=== PATIENT | female | born 1930 ===

== ENCOUNTER 2017-03-05 11:15 | Emergency (ER) | payer MEDICARE, OTHER ==
[2017-03-05 11:30] VITALS: RESP 20
[2017-03-05] MEDS ORDERED: Oxycodone/Acetaminophen 5/325 mg Tab PO STA (12:01)
--- NOTE | 2017-03-05 12:02 | C.PDOC ---
History Of Present Illness 86 y/o female, with past medical history that includes Parkinson's, brought to ED s/p fall last night. Patient and caregiver reports hitting the left side of her head, chest, and hip and c/o pain in those areas. Denies LOC, nausea, vomiting, new weakness or numbness, SOB, or other associated symptoms. - HPI Time Seen by Provider: 03/05/17 11:48 Chief Complaint (Nursing): Rib Injury History Per: Patient History/Exam Limitations: no limitations Onset/Duration Of Symptoms: Days Location Of Injury: Left: Chest, Head, Hip Recent travel outside of the [place]: No - Fall Fall:Prior To Injury: Tripped Past Medical History Reviewed: Historical Data, Nursing Documentation, Vital Signs Vital Signs: Last Vital Signs Temp 98.9 F 03/05/17 13:30 Pulse 72 03/05/17 13:30 Resp 20 03/05/17 13:30 BP 107/65 03/05/17 13:30 Pulse Ox 96 03/05/17 13:30 - Medical History PMH: Parkinson's Disease Family History: States: Unknown Family Hx - Social History Hx Alcohol Use: No Hx Substance Use: No - Immunization History Hx Tetanus Toxoid Vaccination: No Hx Influenza Vaccination: No Hx Pneumococcal Vaccination: No Review Of Systems Except As Marked, All Systems Reviewed And Found Negative. Constitutional: Negative for: Fever, Chills Cardiovascular: Negative for: Chest Pain, Palpitations Respiratory: Negative for: Cough, Shortness of Breath, Wheezing Gastrointestinal: Negative for: Vomiting Musculoskeletal: Positive for: Other (Left rib pain, left hip pain) Skin: Negative for: Rash Neurological: Positive for: Headache (left sided). Negative for: Weakness, Numbness, Dizziness Physical Exam - Physical Exam Appears: Non-toxic, No Acute Distress Skin: Normal Color, Warm, Dry Head: Normacephalic, Tenderness (left sided) Eye(s): bilateral: Normal Inspection, PERRL, EOMI Ear(s): Bilateral: Normal Nose: Normal Oral Mucosa: Moist Neck: Normal ROM, No Midline Cervical Tenderness, No Paracervical Tenderness, Supple Chest: Symmetrical, Tenderness (left sided ribs) Cardiovascular: Rhythm Regular, No Murmur Respiratory: Normal Breath Sounds, No Rales, No Rhonchi, No Wheezing Gastrointestinal/Abdominal: Soft, No Tenderness, No Guarding, No Rebound Back: Normal Inspection, No Vertebral Tenderness, No Paraspinal Tenderness Extremity: Normal ROM, Tenderness (left lateral hip), Capillary Refill (< 2 sec. ), No Deformity Neurological/Psych: Oriented x3, Normal Speech, Normal Cognition ED Course And Treatment O2 Sat by Pulse Oximetry: 99 (RA) Pulse Ox Interpretation: Normal - Radiology CXR: Viewed By Me, Read By Radiologist CXR Interpretation: Yes: No Acute Disease - Other Rad No standard instances X-Ray: Interpreted by Me, Read By Radiologist Interpretation: hip x-ray: neg - CT Scan/US No standard instances CT/US Interpretation: FINDINGS: HEMORRHAGE: No intracranial hemorrhage. BRAIN : Diffuse atrophy with prominence of the ventricles and sulci noted. Reidentified rounded extra-axial calcification in the left superior frontal lobe bordering the dural surface anterior superior frontal region as well as the left parasagittal anterior interhemispheric fissure favored to represent a meningioma measuring approximately 1.4 x 1.3 cm. Followup nonemergent pre and post-contrast MRI of the brain recommended to confirm. 2 additional tiny scattered nonspecific calcifications re-identified. Scattered white matter hypodensities, which are nonspecific, but often seen with chronic microvascular ischemic disease. Please note that MRI with diffusion imaging is more sensitive in the detection of acute ischemic event. VENTRICLES: No hydrocephalus. CALVARIUM: Unremarkable. PARANASAL SINUSES: Underpneumatized/hypoplastic left frontal sinus. Otherwise unremarkable. MASTOID AIR CELLS: Unremarkable as visualized. No inflammatory changes. OTHER FINDINGS: None. IMPRESSION: Generalized atrophy. Nonspecific white matter changes. Reidentified rounded extra-axial calcification in the left superior frontal lobe bordering the dural surface anterior superior frontal region as well as the left parasagittal anterior interhemispheric fissure favored to represent a meningioma measuring approximately 1.4 x 1.3 cm. Followup nonemergent pre and post-contrast MRI of the brain recommended to confirm. Additional findings as above. Progress Note: CT Head, CxR, and left rib x-rays ordered. Treated with morphine 2 mg IM. On re-evaluation sleeping, in no distress Reassessment Condition: Improved Disposition Counseled Patient/Family Regarding: Studies Performed, Diagnosis, Need For Followup - Disposition Referrals: [facility] [Outside] [facility] [Outside] Disposition: HOME/ ROUTINE Disposition Time: 13:20 Condition: STABLE Additional Instructions: return to ED if any increase symptoms Instructions: Fall Prevention for Older Adults (GEN), Head Injury (ED), Rib Contusion (ED) Forms: [employer] (Sinhala) Print Language: WELSH - POA Present On Arrival: None - Clinical Impression Clinical Impression: Fall, Head injury - PA / HEATING ELEMENT BUILDER / Resident Statement MD/DO has reviewed & agrees with the documentation as recorded. - Scribe Statement The provider has reviewed the documentation as recorded by the Scribe SM All medical record entries made by the Scribe were at my direction and personally dictated by me. I have reviewed the chart and agree that the record accurately reflects my personal performance of the history, physical exam, medical decision making, and the department course for this patient. I have also personally directed, reviewed, and agree with the discharge instructions and disposition.
[2017-03-05] MEDS ORDERED: Oxycodone/Acetaminophen 5/325 mg Tab ONE (12:06)
--- NOTE | 2017-03-05 12:38 | CT ---
PROCEDURE: CT HEAD WITHOUT CONTRAST. HISTORY: fall COMPARISON: Noncontrast head CT performed 03/05/17 TECHNIQUE: Axial computed tomography images were obtained through the head/brain without intravenous contrast. Radiation dose: Total exam DLP = 801.89 mGy-cm. This CT exam was performed using one or more of the following dose reduction techniques: Automated exposure control, adjustment of the mA and/or kV according to patient size, and/or use of iterative reconstruction technique. FINDINGS: HEMORRHAGE: No intracranial hemorrhage. BRAIN: Diffuse atrophy with prominence of the ventricles and sulci noted. Reidentified rounded extra-axial calcification in the left superior frontal lobe bordering the dural surface anterior superior frontal region as well as the left parasagittal anterior interhemispheric fissure favored to represent a meningioma measuring approximately 1.4 x 1.3 cm. Followup nonemergent pre and post-contrast MRI of the brain recommended to confirm. 2 additional tiny scattered nonspecific calcifications re-identified. Scattered white matter hypodensities, which are nonspecific, but often seen with chronic microvascular ischemic disease. Please note that MRI with diffusion imaging is more sensitive in the detection of acute ischemic event. VENTRICLES: No hydrocephalus. CALVARIUM: Unremarkable. PARANASAL SINUSES: Underpneumatized/hypoplastic left frontal sinus. Otherwise unremarkable. MASTOID AIR CELLS: Unremarkable as visualized. No inflammatory changes. OTHER FINDINGS: None. IMPRESSION: Generalized atrophy. Nonspecific white matter changes. Reidentified rounded extra-axial calcification in the left superior frontal lobe bordering the dural surface anterior superior frontal region as well as the left parasagittal anterior interhemispheric fissure favored to represent a meningioma measuring approximately 1.4 x 1.3 cm. Followup nonemergent pre and post-contrast MRI of the brain recommended to confirm. Additional findings as above.
[2017-03-05 13:31] VITALS: BP 107/65; PULSE 72; TEMP 98.9
--- NOTE | 2017-03-05 14:47 | RAD ---
HISTORY: SOB COMPARISON: Chest radiographs 10/20/2011. TECHNIQUE: Chest PA and lateral FINDINGS: LUNGS: No active pulmonary disease. PLEURA: No significant pleural effusion identified. No pneumothorax apparent. CARDIOVASCULAR: Normal. OSSEOUS STRUCTURES: No significant abnormalities. VISUALIZED UPPER ABDOMEN: Hepatic calcification appears more calcified in the interval at the medial left lobe approximately. OTHER FINDINGS: None. IMPRESSION: No interval acute cardiopulmonary disease appreciated.
--- NOTE | 2017-03-05 14:56 | RAD ---
PROCEDURE: Radiographs of the pelvis and bilateral hips HISTORY: trauma COMPARISON: None. FINDINGS: BONES: No fracture or destructive bony lesions appreciated throughout the pelvic ring or the bilateral hips. JOINTS: Moderate cortical sclerosis appreciate throughout the bilateral hip joints and sacroiliac joints with limited osteophyte development of the bilateral hip joints appreciated. No subluxation or dislocation is appreciated. Pubic symphysis appears intact swells remaining pubic bony anatomy. Diffuse osteopenia suggests osteoporosis. SOFT TISSUES: Normal. OTHER FINDINGS: None. IMPRESSION: No acute fracture or dislocation bilateral hip joints as discussed above. Degenerative hip and sacroiliac joint changes are seen bilaterally.
[2017-03-05 17:23] VITALS: O2SAT 99
== END 2017-03-05 13:35 | disposition home or self-care (01) ==
LOC: C.ER 11:15
DX: S09.90XA Unspecified injury of head, initial encounter (principal); W01.0XXA Fall on same level from slipping, tripping and stumbling without subsequent striking against object, initial encounter; Y93.E8 Activity, other personal hygiene; Y92.002 Bathroom of unspecified non-institutional (private) residence as the place of occurrence of the external cause
CPT/HCPCS: 70450; 71020; 73521; 96372; 99285; J2270

== ENCOUNTER 2017-10-09 12:22 | Emergency (ER) | payer MEDICARE, OTHER ==
--- NOTE | 2017-10-09 13:25 | C.PDOC ---
History Of Present Illness 87 year old female presents to the ED for evaluation of left shoulder and left rib pain which began yesterday. Patient states she fell from standing at home when her home health aid wasn't there. She took Tylenol yesterday but has not taken anything today. Patient denies head injury, LOC, shortness of breath, extremity numbness/weakness. - HPI Time Seen by Provider: 10/09/17 13:03 Chief Complaint (Nursing): Rib Injury History Per: Patient History/Exam Limitations: no limitations Onset/Duration Of Symptoms: Hrs Location Of Injury: Left: Chest (ribs ), Shoulder Additional History Per: Patient Past Medical History Reviewed: Historical Data, Nursing Documentation, Vital Signs Vital Signs: Last Vital Signs Temp 98.2 F 10/09/17 16:29 Pulse 64 10/09/17 16:29 Resp 16 10/09/17 16:29 BP 132/54 L 10/09/17 16:29 Pulse Ox 100 10/09/17 17:15 - Medical History PMH: Parkinson's Disease Surgical History: No Surg Hx Family History: States: Unknown Family Hx - Social History Hx Alcohol Use: No Hx Substance Use: No - Immunization History Hx Tetanus Toxoid Vaccination: No Hx Influenza Vaccination: No Hx Pneumococcal Vaccination: No Review Of Systems Musculoskeletal: Positive for: Shoulder Pain (left ), Other (left-sided rib pain ) Physical Exam - Physical Exam Appears: Non-toxic, No Acute Distress Skin: Warm, Dry, Ecchymosis (mild, to lateral aspect of left shoulder ) Head: Atraumatic, Normacephalic Eye(s): bilateral: Normal Inspection Oral Mucosa: Moist Neck: Supple Chest: Symmetrical, No Deformity, Tenderness (over left ribs), No Ecchymosis ( ribs ) Cardiovascular: Rhythm Regular Respiratory: Normal Breath Sounds, No Rales, No Rhonchi, No Wheezing Extremity: Normal ROM (left shoulder ), No Tenderness (left shoulder ), Capillary Refill (less than 2 seconds ), No Deformity, No Swelling Neurological/Psych: Oriented x3, Normal Speech, Normal Cognition ED Course And Treatment - Laboratory Results Result Diagrams: 10/09/17 13:31 10/09/17 13:31 Lab Interpretation: Normal O2 Sat by Pulse Oximetry: 100 (on RA) Pulse Ox Interpretation: Normal - CT Scan/US CT Chest Other Rad Studies (CT/US): Interpreted By Me, Read By Radiologist, Radiology Report Reviewed CT/US Interpretation: IMPRESSION: Nondisplaced fracture of the left anterolateral 4th rib. No evidence of pulmonary contusion, laceration, pneumothorax or hemothorax. Bilateral thyroid nodules. Dedicated thyroid ultrasound can be obtained as an outpatient. Progress Note: Bloodwork, urinalysis, CT Chest, EKG ordered and reviewed. Toradol IVP administered. Reevaluation Time: 17:14 Reassessment Condition: Improved Medical Decision Making Medical Decision Making: L anterior 4th rib [id number]. no internal organ damage Disposition Doctor Will See Patient In The: Office Counseled Patient/Family Regarding: Studies Performed, Diagnosis - Disposition Referrals: Vince Huerta MD [Staff Provider] - Disposition: HOME/ ROUTINE Disposition Time: 17:15 Condition: GOOD Additional Instructions: bolsa de hielo 1/2 hora por hora, nada caliente ibuprofeno 400 mg cada 6 horas apryl necessario Tramadol 50 mg (narcotico) en la noche para ayudar dormir. Sigue con Dr. Huerta apryl necessario. Prescriptions: traMADol [Ultram] 50 mg PO Q6H PRN #20 tab PRN Reason: pain Instructions: Rib Fractures in Adults Forms: [employer] (Dominican) Print Language: SAUDI ARABIAN - Clinical Impression Clinical Impression: Rib fracture - Scribe Statement The provider has reviewed the documentation as recorded by the Scribe (Karena Rangel) Provider Attestation: All medical record entries made by the Scribe were at my direction and personally dictated by me. I have reviewed the chart and agree that the record accurately reflects my personal performance of the history, physical exam, medical decision making, and the department course for this patient. I have also personally directed, reviewed, and agree with the discharge instructions and disposition.
[2017-10-09 13:42] LABS: BASO % 0.2 % (0.0-2.0); EOS # 0.1 K/uL (0.0-0.7); EOS % 0.8 % (0.0-4.0); HEMOGLOBIN 11.3 g/dL (11.0-16.0); LYMPH # 1.3 K/uL (1.0-4.3); MEAN CELL VOLUME 83.1 fL (81.0-99.0); MEAN CORPUSCULAR HEMOGLOBIN 27.8 pg (27.0-31.0); MEAN CORPUSCULAR HGB CONC 33.5 g/dL (33.0-37.0); MEAN PLATELET VOLUME 9.5 fL (7.2-11.7); MONO # 0.6 K/uL (0.0-0.8); MONO % 8.1 % (0.0-10.0); NEUT % 71.9 % (50.0-75.0); RBC 4.07 Mil/uL (3.80-5.20); RED CELL DISTRIBUTION WIDTH 14.6 % (11.5-14.5)
[2017-10-09 13:53] LABS: ALB/GLOB RATIO 1.2 (1.0-2.1); ALBUMIN 4.1 g/dL (3.5-5.0); ALT/SGPT 30 U/L (9-52); AST/SGOT 36 U/L (14-36); BLOOD UREA NITROGEN 28 mg/dL (7-17); CALCIUM 9.4 mg/dl (8.6-10.4); GFR AFRICAN-AMERICAN > 60; GFR NON-AFRICAN AMERICAN > 60
[2017-10-09 13:54] LABS: PROTHROMBIN TIME 11.4 SECONDS (9.7-12.2)
[2017-10-09 14:03] LABS: B-TYPE NATRIURETIC PEPTIDE 260 pg/mL (0-900)
[2017-10-09] MEDS ORDERED: Iodixanol 320 MG/ML 100 ML BOTTLE IV ONE (15:27)
[2017-10-09 16:33] VITALS: BP 132/54; PULSE 64; RESP 16; TEMP 98.2
[2017-10-09 16:55] LABS: SQUAMOUS EPITHIAL 4 /hpf (0-5); URINE BACTERIA MOD (<OCC); URINE BILIRUBIN NEGATIVE (NEGATIVE); URINE BLOOD NEGATIVE (NEGATIVE); URINE CLARITY SLIGHT-CLOUDY (Clear); URINE COLOR Amber (YELLOW); URINE GLUCOSE (UA) NORMAL (Normal); URINE LEUKOCYTE ESTERASE 3+ Leu/uL (Negative); URINE PROTEIN 1+ mg/dL (NEGATIVE); WBC CLUMPS MANY /hpf
--- NOTE | 2017-10-09 17:03 | CT ---
PROCEDURE: CT Chest with contrast HISTORY: fall yesterday, L lateral/post ribs/T-spine COMPARISON: None. TECHNIQUE: Contiguous axial images were obtained through the chest with intravenous contrast enhancement. Sagittal and coronal reconstructions were performed. IV contrast: 100 mL Visipaque 320 Radiation dose (DLP): 263 mGy-cm. This CT exam was performed using one or more of the following dose reduction techniques: Automated exposure control, adjustment of the mA and/or kV according to patient size, and/or use of iterative reconstruction technique. FINDINGS: LUNGS: Clear lungs. Visualized airway clear. MEDIASTINUM: Unremarkable thoracic aorta. No aneurysm or dissection. Normal sized heart. Main pulmonary artery unremarkable. No vascular congestion. No lymphadenopathy. PLEURA: No pleural fluid. No pneumothorax. BONES: Nondisplaced fracture of the left anterolateral 4th rib. No destructive lesion. UPPER ABDOMEN: Stable hepatic dome calcification similar in appearance dating back to chest radiograph from 10/20/2011. OTHER FINDINGS: Bilateral low-density thyroid nodule, some of which have calcifications. IMPRESSION: Nondisplaced fracture of the left anterolateral 4th rib. No evidence of pulmonary contusion, laceration, pneumothorax or hemothorax. Bilateral thyroid nodules. Dedicated thyroid ultrasound can be obtained as an outpatient.
[2017-10-09 17:15] VITALS: O2SAT 100
--- NOTE | 2017-10-10 22:49 | CARD ---
APPROVED REPORT EKG Measurement Heart [id number] CA [id number] <Conclusion> Normal sinus rhythm Normal ECG
== END 2017-10-09 17:48 | disposition home or self-care (01) ==
LOC: C.ER 12:22
DX: S22.32XA Fracture of one rib, left side, initial encounter for closed fracture (principal); W18.30XA Fall on same level, unspecified, initial encounter; Y92.009 Unspecified place in unspecified non-institutional (private) residence as the place of occurrence of the external cause; G20 Parkinson's disease
CPT/HCPCS: 71260; 80053; 81001; 83880; 84484; 85025; 85610; 85730; 93005; 96374; 99285; J1885; Q9967

== ENCOUNTER 2018-02-10 17:03 | Emergency (ER) | payer MEDICARE, OTHER ==
[2018-02-10 17:20] VITALS: TEMP 97.4
[2018-02-10] MEDS ORDERED: Lidocaine Hydrochloride 5 ML INJ ONE (17:56)
[2018-02-10] MEDS ORDERED: Tdap Vaccine 0.5 ml Vial (10-64 yrs) IM ONE ×2 (18:01→18:10)
--- NOTE | 2018-02-10 18:33 | C.PDOC ---
History Of Present Illness 87 y/o female with PMHx of Parkinsons disease, presents to the ED for evaluation s/p fall. Patient was at home today when son states patient tried to get up by herself (which she knows she is not supposed to do), and fell. He was able to help her up. Patient denies any current pain, LOC, nausea, vomiting, dizziness, or other injuries. - HPI Time Seen by Provider: 02/10/18 17:44 Chief Complaint (Nursing): Trauma History Per: Patient History/Exam Limitations: no limitations Onset/Duration Of Symptoms: Mins Injury Occurred (Timing): Just Before Arrival Additional History Per: Family (Son) Past Medical History Reviewed: Historical Data, Nursing Documentation, Vital Signs Vital Signs: Last Vital Signs Temp 97.4 F L 02/10/18 17:15 Pulse 75 02/10/18 17:15 Resp 20 02/10/18 17:15 BP 189/79 H 02/10/18 17:15 Pulse Ox 99 02/10/18 17:15 - Medical History PMH: Parkinson's Disease Surgical History: No Surg Hx Family History: States: Unknown Family Hx - Social History Hx Tobacco Use: No Hx Alcohol Use: No Hx Substance Use: No - Immunization History Hx Tetanus Toxoid Vaccination: No Hx Influenza Vaccination: No Hx Pneumococcal Vaccination: No Review Of Systems Except As Marked, All Systems Reviewed And Found Negative. Constitutional: Negative for: Fever Respiratory: Negative for: Shortness of Breath Gastrointestinal: Negative for: Nausea, Vomiting Musculoskeletal: Negative for: Arm Pain, Leg Pain Skin: Positive for: Lesions (to forehead) Neurological: Negative for: Change in Speech, Altered Mental Status, Dizziness, Other (LOC) Physical Exam - Physical Exam Additional Physical Exam Comments: Constitutional: No acute distress. Head: Normocephalic. Small laceration to the right lateral eyebrow. Eyes: PERRL. ENT: Moist mucous membranes. Neck: Supple. No midline tenderness. Cardiovascular: Regular rate. Radial pulse 2+ bilaterally. Chest: No tenderness. Respiratory: Clear to auscultation bilaterally. GI: Soft. Nontender. Nondistended. Back: No CVA tenderness. No midline tenderness. Musculoskeletal: No tenderness or swelling of extremities. Skin: No rash. Neurologic: Alert, no focal deficit. + Cogwheel rigidity. ED Course And Treatment O2 Sat by Pulse Oximetry: 99 (RA) Pulse Ox Interpretation: Normal - CT Scan/US CT Head Other Rad Studies (CT/US): Read By Radiologist, Radiology Report Reviewed CT/US Interpretation: Date of service: 02/10/2018. PROCEDURE: CT HEAD WITHOUT CONTRAST. HISTORY: fall. COMPARISON: Noncontrast head CT performed 09/11/17. TECHNIQUE: Axial computed tomography images were obtained through the head/brain without intravenous contrast. Radiation dose: Total exam DLP = 815.14 mGy-cm. This CT exam was performed using one or more of the following dose reduction techniques: Automated exposure control, adjustment of the mA and/or kV according to patient size, and/or use of iterative reconstruction technique. FINDINGS: HEMORRHAGE: No intracranial hemorrhage. BRAIN: No mass effect or edema. Intracranial atherosclerosis. 1.6 cm calcified mass as seen on prior study at the level of the left frontal vertex, likely calcified meningioma. The morales-white matter differentiation appears intact. Please note that MRI with diffusion imaging is more sensitive in the detection of acute ischemic event. Prominent cisterna magna re-identified. VENTRICLES: No hydrocephalus. CALVARIUM: Unremarkable. PARANASAL SINUSES: Unremarkable as visualized. No significant inflammatory changes. MASTOID AIR CELLS: Unremarkable as visualized. No inflammatory changes. OTHER FINDINGS: None. IMPRESSION: No acute intracranial pathology identified. Re-identified 1.6 cm calcified lesion at the left frontal vertex likely meningioma. Laceration - Laceration Repair No standard instances Wound Length (In cm): 2cm Description Of Wound: Stellate (mostly linear) Anesthesia: Lidocaine 1% Wound Examination: Irrigated With Saline Wound Closure: Suture (3) Suture Technique And Material Used: Interrupted, Vicryl Wound Complexity: Simple Medical Decision Making Medical Decision Making: Plan: Tetanus booster given. Non-contrast Head CT ordered. Laceration repaired without difficulty. Discharged home, f/u PMD, return to ED immediately for any lethargy, vomiting, seizure, redness, discharge, fever, or any other problem. Disposition - Disposition Disposition: HOME/ ROUTINE Disposition Time: 20:00 Condition: STABLE Instructions: Laceration Repair Forms: [employer] (Spanish) - Clinical Impression Clinical Impression: Fall, Head injury, Laceration - injury - Scribe Statement The provider has reviewed the documentation as recorded by the Deangelo Vaz Provider Attestation: All medical record entries made by the Scribe were at my direction and personally dictated by me. I have reviewed the chart and agree that the record accurately reflects my personal performance of the history, physical exam, medical decision making, and the department course for this patient. I have also personally directed, reviewed, and agree with the discharge instructions and d isposition.
--- NOTE | 2018-02-10 18:54 | CT ---
Date of service: 02/10/2018 PROCEDURE: CT HEAD WITHOUT CONTRAST. HISTORY: fall COMPARISON: Noncontrast head CT performed 09/11/17 TECHNIQUE: Axial computed tomography images were obtained through the head/brain without intravenous contrast. Radiation dose: Total exam DLP = 815.14 mGy-cm. This CT exam was performed using one or more of the following dose reduction techniques: Automated exposure control, adjustment of the mA and/or kV according to patient size, and/or use of iterative reconstruction technique. FINDINGS: HEMORRHAGE: No intracranial hemorrhage. BRAIN: No mass effect or edema. Intracranial atherosclerosis. 1.6 cm calcified mass as seen on prior study at the level of the left frontal vertex, likely calcified meningioma. The morales-white matter differentiation appears intact. Please note that MRI with diffusion imaging is more sensitive in the detection of acute ischemic event. Prominent cisterna magna re-identified. VENTRICLES: No hydrocephalus. CALVARIUM: Unremarkable. PARANASAL SINUSES: Unremarkable as visualized. No significant inflammatory changes. MASTOID AIR CELLS: Unremarkable as visualized. No inflammatory changes. OTHER FINDINGS: None. IMPRESSION: No acute intracranial pathology identified. Re-identified 1.6 cm calcified lesion at the left frontal vertex likely meningioma.
[2018-02-10 20:48] VITALS: BP 132/74; PULSE 74; RESP 18; O2SAT 98
== END 2018-02-10 20:48 | disposition home or self-care (01) ==
LOC: C.ER 17:03
DX: S01.111A Laceration without foreign body of right eyelid and periocular area, initial encounter (principal); W18.30XA Fall on same level, unspecified, initial encounter; Y92.009 Unspecified place in unspecified non-institutional (private) residence as the place of occurrence of the external cause; Z23 Encounter for immunization

== ENCOUNTER 2018-08-28 12:00 | Inpatient (IN) | payer MEDICARE, OTHER ==
[2018-08-28 12:13] VITALS: BMI 21.4
[2018-08-28] MEDS ORDERED: Albuterol 0.083% Inhal Sol (2.5 mg/3 mL) UD INH STA (12:33)
[2018-08-28] MEDS ORDERED: Sodium Chloride 0.9% 1,000 ML IV ONE (12:33)
--- NOTE | 2018-08-28 12:47 | C.PDOC ---
History Of Present Illness 88 year old female presents to ED with homemaker with complaint of sore throat, cough, and congestion for the past 2 days. Patient also complains of diffuse body aches and fever (TM 100.3). Patient has a PMHx of Parkinson's. Patient denies vomiting, abdominal pain, and shortness of breath. Time Seen by Provider: 08/28/18 12:20 Chief Complaint (Nursing): Cough, Cold, Congestion History Per: Patient, Other (homemaker) History/Exam Limitations: no limitations Onset/Duration Of Symptoms: Days (2) Current Symptoms Are (Timing): Still Present Location Of Pain: Throat, Diffuse Myalgias Associated Symptoms: Fever, Sore Throat, Cough, Myalgias. denies: Chills, Sinus Drainage, Nasal Congestion, Nausea, Vomiting, Diarrhea Ear Symptoms: Bilateral: None Past Medical History Reviewed: Historical Data, Nursing Documentation, Vital Signs Primary Care Provider: Vince Huerta - Medical History PMH: Parkinson's Disease Surgical History: No Surg Hx Family History: States: Unknown Family Hx - Social History Hx Tobacco Use: No Hx Alcohol Use: No Hx Substance Use: No - Immunization History Hx Tetanus Toxoid Vaccination: No Hx Influenza Vaccination: No Hx Pneumococcal Vaccination: No Review Of Systems Except As Marked, All Systems Reviewed And Found Negative. Constitutional: Positive for: Fever, Malaise ENT: Positive for: Nose Congestion Respiratory: Positive for: Cough Physical Exam - Physical Exam Appears: Well, Non-toxic, No Acute Distress Skin: Normal Color, Warm, Dry Head: Atraumatic, Normacephalic Eye(s): bilateral: Normal Inspection, PERRL, Other ((Conjunctiva clear)) Oral Mucosa: Dry Throat: Erythema Neck: Normal ROM, Supple Chest: Symmetrical, No Deformity Cardiovascular: Rhythm Regular, No Murmur Respiratory: No Accessory Muscle Use, No Rales, Rhonchi (diffuse rhonchi bilaterally), No Wheezing Gastrointestinal/Abdominal: Soft, No Tenderness, No Distention, No Guarding, No Rebound Extremity: Capillary Refill (<2 seconds) Extremity: Bilateral: Atraumatic, Normal Color And Temperature, Other (no cyanosis or edema) Pulses: Left Radial: Normal, Right Radial: Normal Neurological/Psych: Oriented x3, Normal Cranial Nerves, Normal Motor, Normal Sensation ED Course And Treatment - Laboratory Results Result Diagrams: 08/31/18 06:25 08/31/18 06:25 ECG: Interpreted By Me, Viewed By Me ECG Rhythm: Sinus Rhythm ECG Interpretation: Normal Rate From EC - Other Rad CXR X-Ray: Viewed By Me Interpretation: Date of service: 08/28/2018. PROCEDURE: CHEST RADIOGRAPH, 1 VIEW. HISTORY: Pneumonia. COMPARISON: 03/05/2017. FINDINGS: LUNGS: Clear. PLEURA: No pneumothorax or pleural fluid seen. CARDIOVASCULAR: No aortic atherosclerotic calcification present. Normal. OSSEOUS STRUCTURES: No significant abnormalities. VISUALIZED UPPER ABDOMEN: Normal. OTHER FINDINGS: None. IMPRESSION: No active disease. Medical Decision Making Medical Decision Making: Impression: 88 year old female with complaint of cough, congestion, and sore t hroat for the past 2 days. Initial Plan: VBG shock panel CMP troponin CBC CXR blood culture flu a/b swab B-type naturitic peptide Patient given albuterol INH and IV fluids Spoke to Dr. Huerta, patient is tachypneic w/borderline low O2 sat, wants to admit patient for high risk of aspiration. Patient and family agreeable w/POC. Disposition - Disposition Disposition: HOSPITALIZED Disposition Time: 15:15 Condition: FAIR - Clinical Impression Clinical Impression: Pneumonia - Scribe Statement The provider has reviewed the documentation as recorded by the Scribe (Kira Menendez) All medical record entries made by the Scribe were at my direction and personally dictated by me. I have reviewed the chart and agree that the record accurately reflects my personal performance of the history, physical exam, medical decision making, and the department course for this patient. I have also personally directed, reviewed, and agree with the discharge instructions and disposition.
[2018-08-28 12:59] LABS: BASO % 0.1 % (0.0-2.0); EOS # 0.3 K/uL (0.0-0.7); EOS % 4.2 % (0.0-4.0); LYMPH # 1.2 K/uL (1.0-4.3); LYMPH % 15.3 % (20.0-40.0); MEAN CELL VOLUME 84.6 fL (81.0-99.0); MEAN CORPUSCULAR HEMOGLOBIN 27.8 pg (27.0-31.0); MEAN CORPUSCULAR HGB CONC 32.9 g/dL (33.0-37.0); MEAN PLATELET VOLUME 10.2 fL (7.2-11.7); MONO # 0.5 K/uL (0.0-0.8); MONO % 6.2 % (0.0-10.0); NEUT # 5.9 K/uL (1.8-7.0); NEUT % 74.2 % (50.0-75.0); RBC 4.3 Mil/uL (3.80-5.20); RED CELL DISTRIBUTION WIDTH 14.6 % (11.5-14.5); WHITE BLOOD COUNT 7.9 K/uL (4.8-10.8)
[2018-08-28 12:59] LABS: VENOUS BLOOD GAS BASE EXCESS -3.2 mmol/L (0.0-2.0); VENOUS BLOOD GAS PCO2 43 mmHg (40-60); VENOUS BLOOD GAS PO2 24 mm/Hg (30-55); VENOUS BLOOD PH 7.33 (7.32-7.43)
[2018-08-28] MEDS ORDERED: Albuterol 0.083% Inhal Sol (2.5 mg/3 mL) UD ONE (13:02)
[2018-08-28 13:11] LABS: ALB/GLOB RATIO 1.5 (1.0-2.1); ALBUMIN 4.8 g/dL (3.5-5.0); ALT/SGPT 16 U/L (9-52); AST/SGOT 21 U/L (14-36); BLOOD UREA NITROGEN 27 mg/dL (7-17); CALCIUM 9.7 mg/dl (8.6-10.4); GFR NON-AFRICAN AMERICAN > 60
--- NOTE | 2018-08-28 13:17 | RAD ---
Date of service: 08/28/2018 PROCEDURE: CHEST RADIOGRAPH, 1 VIEW HISTORY: Pneumonia COMPARISON: 03/05/2017 FINDINGS: LUNGS: Clear. PLEURA: No pneumothorax or pleural fluid seen. CARDIOVASCULAR: No aortic atherosclerotic calcification present. Normal. OSSEOUS STRUCTURES: No significant abnormalities. VISUALIZED UPPER ABDOMEN: Normal. OTHER FINDINGS: None. IMPRESSION: No active disease.
[2018-08-28 13:23] LABS: B-TYPE NATRIURETIC PEPTIDE 437 pg/mL (0-900)
[2018-08-28] MEDS ORDERED: cefTRIAXone IV 1 gm in Dextros 50 ML IV STA (15:16)
[2018-08-28] MEDS: Albuterol-Ipratrop 3 mg / 0.5 (3 ml) UD IH SCH ×3 (15:30→16:00)
[2018-08-28] MEDS ORDERED: Azithromycin 500mg/250ML NS 500 MG/250 ML BAG IV ONE (16:00)
[2018-08-28] MEDS ORDERED: Albuterol-Ipratrop 3 mg / 0.5 (3 ml) UD ONE (16:17)
[2018-08-28] MEDS ORDERED: Azithromycin 500mg/250ML NS 500 MG/250 ML BAG IVPB ONE (16:52)
--- NOTE | 2018-08-28 19:42 | CP.PCM.HP ---
History of Present Illness - History of Present Illness History of Present Illness: chief complaint: Shortness of breath HPI: 88-year-old female with a history of advanced Parkinson disease, and associated dementia. Patient also significantly disabled, using wheelchair for mostly mobility. Patient came to my office recently, physical therapy was started. Recently while she was doing physical therapy patient was having difficult time in getting up. I advised her to eat pured diet thickener, but in spite of that the patient was having difficult time in swallowing. She started losing significant weight. Recently over the course of 2 days she was having increasing shortness of breath, cough, sore throat, and associate with the chest congestion and also was having low-grade fever chills and feverish while she was brought into the emergency room. Patient family was also concerned about her losing significant weight in spite of the feeding with assistance. Patient also having increasing fatigue, mild tachypnea also noted. She was also having weakness tiredness fatigue. She denied have diarrhea. But mostly weak and extreme tiredness and fatigue present Past medical history: Advanced Parkinson disease Mild dementia. Musculoskeletal disability. Mostly wheelchair-bound. Hypertension. Had a history of diabetes in the past. Poor intake recently Surgical history no surgery. Patient has no known drug allergy. She did not have any alcohol or smoking or drug abuse in the past. Patient's family is mostly taking care of her. Patient has a home health aide. Review of system: Patient is now complaining of minimal cough, some shortness of breath noted. She denied any headache. She is awake and responding. Moving all full extremity but having increasing weakness and is slow in mobility noted No leg swelling. On examination: Vital signs otherwise stable. Mild tachycardia, tachypnea, and a low-grade fever noted. Chest bilateral minimal expiratory wheezing noted, regular heart sound Nontender abdomen. Patient has no pedal edema Chest x-ray reveals left lower lung atelectatic changes. CBC CMP nonspecific. No EKG changes noted. Assessment and recommendation: 88-year-old female with history of advanced Parkinson disease. Associated dementia. Hypertension and a history of high blood pressure and diabetes. The patient is now admitted with a possible aspiration pneumonia aspiration pneumonitis. Overall patient is worsening in her musculoskeletal endurance and capacity. Patient is having worsening Parkinson disease. Patient is at high risk for aspiration pneumonia. We will get a CT of the chest. Swallow evaluation. Aspiration precautions. DVT GI prophylaxis. We will continue to closely monitor. Neuro watch. Neurological, if needed patient might need alternative feeding. We will follow the patient Present on Admission - Present on Admission Any Indicators Present on Admission: No History of DVT/PE: No History of Uncontrolled Diabetes: No Urinary Catheter: No Decubitus Ulcer Present: No Past Patient History - Past Social History Smoking Status: Never Smoked - NEUROLOGICAL Hx Parkinson's Disease: Yes - PSYCHIATRIC Hx Substance Use: No - SURGICAL HISTORY Hx Surgeries: No - ANESTHESIA Hx Anesthesia: No Meds Allergies/Adverse Reactions: Allergies Allergy/AdvReac Type Severity Reaction Status Date / Time No Known Allergies Allergy Verified 08/28/18 12:12 Results - Vital Signs Recent Vital Signs: Last Vital Signs Temp 97.4 F L 08/28/18 19:00 Pulse 82 08/28/18 19:37 Resp 18 08/28/18 19:00 BP 124/67 08/28/18 19:00 Pulse Ox 94 L 08/28/18 19:00 - Labs Result Diagrams: 08/28/18 12:54 08/28/18 12:54 Labs: Laboratory Results - last 24 hr 08/28/18 08/28/18 08/28/18 12:54 12:54 12:56 WBC 7.9 RBC 4.30 Hgb 12.0 Hct 36.4 MCV 84.6 MCH 27.8 MCHC 32.9 L RDW 14.6 H Plt Count 228 MPV 10.2 Neut % (Auto) 74.2 Lymph % (Auto) 15.3 L [place] % (Auto) 6.2 Eos % (Auto) 4.2 H Baso % (Auto) 0.1 Neut # (Auto) 5.9 Lymph # (Auto) 1.2 [place] # (Auto) 0.5 Eos # (Auto) 0.3 Baso # (Auto) 0.0 pO2 24 L VBG pH 7.33 VBG pCO2 43 VBG HCO3 20.8 VBG Total CO2 24.0 VBG O2 Sat (Calc) 36.9 L VBG Base Excess -3.2 L VBG Potassium 3.3 L Glucose 88 Lactate 0.9 Sodium 146 147.0 Potassium 3.9 Chloride 110 H 115.0 H Carbon Dioxide 26 Anion Gap 14 BUN 27 H Creatinine 0.5 L Est GFR ( Amer) > 60 Est GFR (Non-Af Amer) > 60 Random Glucose 97 Calcium 9.7 Total Bilirubin 0.3 AST 21 ALT 16 Alkaline Phosphatase 112 Troponin I < 0.0120 NT-Pro-B Natriuret Pep 437 Total Protein 8.2 Albumin 4.8 Globulin 3.3 Albumin/Globulin Ratio 1.5 Venous Blood Potassium 3.3 L Influenza Typ A,B (EIA) 08/28/18 13:05 WBC RBC Hgb Hct MCV MCH MCHC RDW Plt Count MPV Neut % (Auto) Lymph % (Auto) [place] % (Auto) Eos % (Auto) Baso % (Auto) Neut # (Auto) Lymph # (Auto) [place] # (Auto) Eos # (Auto) Baso # (Auto) pO2 VBG pH VBG pCO2 VBG HCO3 VBG Total CO2 VBG O2 Sat (Calc) VBG Base Excess VBG Potassium Glucose Lactate Sodium Potassium Chloride Carbon Dioxide Anion Gap BUN Creatinine Est GFR ( Amer) Est GFR (Non-Af Amer) Random Glucose Calcium Total Bilirubin AST ALT Alkaline Phosphatase Troponin I NT-Pro-B Natriuret Pep Total Protein Albumin Globulin Albumin/Globulin Ratio Venous Blood Potassium Influenza Typ A,B (EIA) Negative for flu a/b
[2018-08-29] MEDS: Albuterol-Ipratrop 3 mg / 0.5 (3 ml) UD INH SCH ×4 (02:25→19:21)
[2018-08-30] MEDS: Albuterol-Ipratrop 3 mg / 0.5 (3 ml) UD INH SCH ×4 (02:00→19:19)
--- NOTE | 2018-08-30 15:42 | CP.PCM.PN ---
Subjective - Date & Time of Evaluation Date of Evaluation: 08/29/18 Time of Evaluation: 15:40 - Subjective Subjective: Patient is still having episodes of cough. Slightly worsening now Also having difficult time in swallowing sometimes. Patient is also very slow in response. At this moment the patient is having worsening Parkinson disease On examination: Patient is mostly lying down on the bed. Limited mobility. Muscle wasting noted Chest is clear regular heart sound abdominal tenderness negative pedal edema negative Labs reviewed Chest x-ray increasing congestive changes noted assessment and recommendation: 88-year-old female with advanced Parkinson disease. Hypertension. Worsening neurological status. Neuromuscular status is also worsening. Dysphagia. Aspiration pneumonitis. On antibiotic. We will do a video swallow study. We will discuss with the family regarding possible PEG tube if needed and will discuss with the family regarding further management and will follow up the patient Objective - Vital Signs/Intake and Output Vital Signs (last 24 hours): Temp Pulse Resp BP Pulse Ox 97.6 F 66 20 182/72 H 95 08/30/18 07:29 08/30/18 13:00 08/30/18 07:29 08/30/18 07:29 08/30/18 07:29 Intake and Output: 08/30/18 08/30/18 06:59 18:59 Intake Total 300 Balance 300 - Medications Medications: Current Medications Albuterol/Ipratropium (Duoneb 3 Mg/0.5 Mg (3 Ml) Ud) 3 ml INH RQ6 [facility] Last Admin: 08/30/18 13:21 Dose: 3 ml Carbidopa/Levodopa (Sinemet) 1 tab PO QID [facility] Last Admin: 08/30/18 13:16 Dose: 1 tab Heparin Sodium (Porcine) (Heparin) 5,000 units SC Q12 [facility] Last Admin: 08/30/18 09:37 Dose: 5,000 units Ceftriaxone Sodium 1 gm/ (Sodium Chloride) 100 mls @ 100 mls/hr IVPB DAILY [facility]; Protocol Last Admin: 08/30/18 09:37 Dose: 100 mls/hr Pramipexole Dihydrochloride (Mirapex) 0.5 mg PO DAILY [facility] Last Admin: 08/30/18 09:37 Dose: 0.5 mg Rivastigmine (Exelon 4.6 Mg/24 Hr Patch) 1 patch TD DAILY [facility] Last Admin: 08/30/18 09:37 Dose: 1 patch - Labs Labs: 08/28/18 12:54 08/28/18 12:54
--- NOTE | 2018-08-30 15:43 | CP.PCM.PN ---
Subjective - Date & Time of Evaluation Date of Evaluation: 08/30/18 Time of Evaluation: 15:42 - Subjective Subjective: Patient is still having episodes of cough. Slightly worsening now Also having difficult time in swallowing sometimes. Patient is also very slow in response. At this moment the patient is having worsening Parkinson disease On examination: Patient is mostly lying down on the bed. Limited mobility. Muscle wasting noted Chest is clear regular heart sound abdominal tenderness negative pedal edema negative Labs reviewed Chest x-ray increasing congestive changes noted assessment and recommendation: 88-year-old female with advanced Parkinson disease. Hypertension. Worsening neurological status. Neuromuscular status is also worsening. Dysphagia. Aspiration pneumonitis. On antibiotic. swallow eval may need barium GI eval if needed Objective - Vital Signs/Intake and Output Vital Signs (last 24 hours): Temp Pulse Resp BP Pulse Ox 97.6 F 66 20 182/72 H 95 08/30/18 07:29 08/30/18 13:00 08/30/18 07:29 08/30/18 07:29 08/30/18 07:29 Intake and Output: 08/30/18 08/30/18 06:59 18:59 Intake Total 300 Balance 300 - Medications Medications: Current Medications Albuterol/Ipratropium (Duoneb 3 Mg/0.5 Mg (3 Ml) Ud) 3 ml INH RQ6 [facility] Last Admin: 08/30/18 13:21 Dose: 3 ml Carbidopa/Levodopa (Sinemet) 1 tab PO QID [facility] Last Admin: 08/30/18 13:16 Dose: 1 tab Heparin Sodium (Porcine) (Heparin) 5,000 units SC Q12 [facility] Last Admin: 08/30/18 09:37 Dose: 5,000 units Ceftriaxone Sodium 1 gm/ (Sodium Chloride) 100 mls @ 100 mls/hr IVPB DAILY [facility]; Protocol Last Admin: 08/30/18 09:37 Dose: 100 mls/hr Pramipexole Dihydrochloride (Mirapex) 0.5 mg PO DAILY [facility] Last Admin: 08/30/18 09:37 Dose: 0.5 mg Rivastigmine (Exelon 4.6 Mg/24 Hr Patch) 1 patch TD DAILY [facility] Last Admin: 08/30/18 09:37 Dose: 1 patch - Labs Labs: 08/28/18 12:54 08/28/18 12:54
[2018-08-31] MEDS: Albuterol-Ipratrop 3 mg / 0.5 (3 ml) UD INH SCH ×4 (01:09→20:58)
[2018-08-31 06:34] LABS: BASO % 0.3 % (0.0-2.0); EOS # 0.1 K/uL (0.0-0.7); EOS % 2.6 % (0.0-4.0); HEMOGLOBIN 11.5 g/dL (11.0-16.0); LYMPH # 1.5 K/uL (1.0-4.3); LYMPH % 28.3 % (20.0-40.0); MEAN CELL VOLUME 82.3 fL (81.0-99.0); MEAN CORPUSCULAR HEMOGLOBIN 27.3 pg (27.0-31.0); MEAN CORPUSCULAR HGB CONC 33.2 g/dL (33.0-37.0); MEAN PLATELET VOLUME 9.4 fL (7.2-11.7); MONO # 0.4 K/uL (0.0-0.8); NEUT # 3.3 K/uL (1.8-7.0); NEUT % 61.8 % (50.0-75.0); NRBC % 0.1 % (0.0-2.0); RBC 4.21 Mil/uL (3.80-5.20); WHITE BLOOD COUNT 5.3 K/uL (4.8-10.8)
[2018-08-31 07:03] LABS: ALB/GLOB RATIO 1.3 (1.0-2.1); ALBUMIN 4.2 g/dL (3.5-5.0); ALT/SGPT 9 U/L (9-52); AST/SGOT 23 U/L (14-36); BLOOD UREA NITROGEN 17 mg/dL (7-17); CALCIUM 9.4 mg/dl (8.6-10.4); GFR NON-AFRICAN AMERICAN > 60
--- NOTE | 2018-08-31 09:55 | RAD ---
Chest x-ray single frontal view HISTORY: Pneumonia. COMPARISON: 08/28/2018 FINDINGS: Limited study as the patient is rotated. Patchy increased consolidative changes in the right infrahilar region which may represent underlying infiltrate and or atelectasis. Diffuse increased interstitial lung markings. Right upper lobe granulomatous changes. Tortuous aorta. Top normal heart size. Rounded radiopaque calcified focus projecting over the right upper abdomen, nonspecific. Clinical correlation. Correlation with CT scan may be helpful if clinically indicated. Degenerative changes in the spine. IMPRESSION: Limited study as the patient is rotated. Patchy increased consolidative changes in the right infrahilar region which may represent underlying infiltrate and or atelectasis. Diffuse increased interstitial lung markings. Right upper lobe granulomatous changes. Tortuous aorta. Top normal heart size. Rounded radiopaque calcified focus projecting over the right upper abdomen, nonspecific. Clinical correlation. Correlation with CT scan may be helpful if clinically indicated.
--- NOTE | 2018-08-31 13:40 | CARD ---
APPROVED REPORT Date of service: 08/28/2018 EKG Measurement Heart [id number] [place] [id number] [id number] <Conclusion> Normal sinus rhythm Normal ECG
[2018-09-01] MEDS: Albuterol-Ipratrop 3 mg / 0.5 (3 ml) UD INH SCH ×4 (01:22→21:18)
--- NOTE | 2018-09-01 20:46 | CP.PCM.PN ---
Subjective - Date & Time of Evaluation Date of Evaluation: 08/31/18 Time of Evaluation: 20:46 - Subjective Subjective: Patient was seen by speech and swallow. Advised to for nectar thickened soft diet. I spoke to the patient's family in detail. I also recommended for rehab. But family wants to take her home. Patient is still having minimal cough. Respiration is slightly better. Denies any chest pain or shortness of breath at this time. No pedal edema. We will continue to monitor. Repeat swallow evaluation tomorrow. Objective - Vital Signs/Intake and Output Vital Signs (last 24 hours): Temp Pulse Resp BP Pulse Ox 98.2 F 78 18 146/66 94 L 09/01/18 15:58 09/01/18 15:58 09/01/18 15:58 09/01/18 15:58 09/01/18 15:58 Intake and Output: 09/01/18 09/02/18 18:59 06:59 Intake Total 200 Balance 200 - Medications Medications: Current Medications Albuterol/Ipratropium (Duoneb 3 Mg/0.5 Mg (3 Ml) Ud) 3 ml INH RQ6 [facility] Last Admin: 09/01/18 13:13 Dose: 3 ml Carbidopa/Levodopa (Sinemet) 1 tab PO QID [facility] Last Admin: 09/01/18 17:12 Dose: 1 tab Pramipexole Dihydrochloride (Mirapex) 0.5 mg PO DAILY [facility] Last Admin: 09/01/18 10:25 Dose: 0.5 mg Rivastigmine (Exelon 4.6 Mg/24 Hr Patch) 1 patch TD DAILY [facility] Last Admin: 09/01/18 10:25 Dose: 1 patch - Labs Labs: 08/31/18 06:25 08/31/18 06:25
--- NOTE | 2018-09-01 20:50 | CP.PCM.PN ---
Subjective - Date & Time of Evaluation Date of Evaluation: 09/01/18 Time of Evaluation: 20:49 - Subjective Subjective: Patient is now more comfortable. No cough noted. She was able to eat better today. Vital signs otherwise stable. On examination: Chest is clear But left lower lung minimal rales noted regular heart sound. Abdomen soft nontender. No pedal edema Patient is clinically stable. We will plan for discharge tomorrow, I recommended rehab, but if the family does not want it we will send the patient home. Will need to have home physical therapy, visiting nurse, and physical exercise. Aspiration precautions. Nebulizers in the house. We will discuss with the family and develop plan for the discharge tomorrow Objective - Vital Signs/Intake and Output Vital Signs (last 24 hours): Temp Pulse Resp BP Pulse Ox 98.2 F 78 18 146/66 94 L 09/01/18 15:58 09/01/18 15:58 09/01/18 15:58 09/01/18 15:58 09/01/18 15:58 Intake and Output: 09/01/18 09/02/18 18:59 06:59 Intake Total 200 Balance 200 - Medications Medications: Current Medications Albuterol/Ipratropium (Duoneb 3 Mg/0.5 Mg (3 Ml) Ud) 3 ml INH RQ6 [facility] Last Admin: 09/01/18 13:13 Dose: 3 ml Artificial Tears (Artificial Tears) 1 ml OU Q12 [facility] Carbidopa/Levodopa (Sinemet) 1 tab PO QID [facility] Last Admin: 09/01/18 17:12 Dose: 1 tab Pramipexole Dihydrochloride (Mirapex) 0.5 mg PO DAILY [facility] Last Admin: 09/01/18 10:25 Dose: 0.5 mg Rivastigmine (Exelon 4.6 Mg/24 Hr Patch) 1 patch TD DAILY [facility] Last Admin: 09/01/18 10:25 Dose: 1 patch - Labs Labs: 08/31/18 06:25 08/31/18 06:25
[2018-09-01] MEDS: Aritificial Tears (15ml) OU SCH (21:40)
[2018-09-02] MEDS: Albuterol-Ipratrop 3 mg / 0.5 (3 ml) UD INH SCH ×4 (01:11→20:11)
[2018-09-02] MEDS: Aritificial Tears (15ml) OU SCH ×2 (09:28→21:24)
--- NOTE | 2018-09-02 20:52 | CP.PCM.PN ---
Subjective - Date & Time of Evaluation Date of Evaluation: 09/02/18 Time of Evaluation: 20:51 - Subjective Subjective: Patient condition remains unchanged. Patient is awake and responding. Her eating is extremely small, only 50% that she is able to eat. Still at high risk for aspiration. 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 Family is agreeing for possible subacute rehabilitation. I tried to reach the family today, but I am was not able to reach them. Patient is now not in any distress. Chest is clear. Regular heart sounds noted. Abdomen soft nontender. Assessment and recommendation: 88-year-old female with a history of advanced Parkinson disease, dementia, osteoporosis and osteoarthritis. High risk for aspiration. Worsening at this time. I recommended aspiration precautions close monitoring. Physical therapy. Out of bed to chair. Rehab evaluation Objective - Vital Signs/Intake and Output Vital Signs (last 24 hours): Temp Pulse Resp BP Pulse Ox 98 F 70 20 140/76 96 09/02/18 16:00 09/02/18 16:00 09/02/18 16:00 09/02/18 16:00 09/02/18 16:00 Intake and Output: 09/02/18 09/03/18 18:59 06:59 Intake Total 300 Output Total 3 Balance 297 - Medications Medications: Current Medications Albuterol/Ipratropium (Duoneb 3 Mg/0.5 Mg (3 Ml) Ud) 3 ml INH RQ6 [facility] Last Admin: 09/02/18 20:11 Dose: Not Given Artificial Tears (Artificial Tears) 0 ml OU Q12 [facility] Last Admin: 09/02/18 09:28 Dose: 1 drop Carbidopa/Levodopa (Sinemet) 1 tab PO QID [facility] Last Admin: 09/02/18 18:05 Dose: 1 tab Pramipexole Dihydrochloride (Mirapex) 0.5 mg PO DAILY [facility] Last Admin: 09/02/18 09:29 Dose: 0.5 mg Rivastigmine (Exelon 4.6 Mg/24 Hr Patch) 1 patch TD DAILY [facility] Last Admin: 09/02/18 09:38 Dose: 1 patch - Labs Labs: 08/31/18 06:25 08/31/18 06:25
[2018-09-03] MEDS: Albuterol-Ipratrop 3 mg / 0.5 (3 ml) UD INH SCH ×3 (01:13→13:31)
[2018-09-03 08:34] VITALS: BP 126/63; PULSE 68; RESP 18; TEMP 98.4; O2SAT 94
--- NOTE | 2018-09-03 08:56 | CP.PCM.PN ---
Subjective - Date & Time of Evaluation Date of Evaluation: 09/03/18 Time of Evaluation: 08:55 - Subjective Subjective: Patient is currently sitting up comfortably. She is not in any distress. She is being assisted for eating at this time. No chest pain or shortness of breath. Minimal cough noted On examination: Chest bilateral good air entry no wheezing or rales noted regular [place] nontender abdomen I reviewed the patient's labs. Clinically stable. Patient is a 88-year-old female with advanced dementia and advanced Parkinson disease and mobility disorder. Need physical therapy. Patient will be needing hospitalization at the rehab. Patient has had frequent falls in the past. Once the bed is available we will transfer the patient to rehab Objective - Vital Signs/Intake and Output Vital Signs (last 24 hours): Temp Pulse Resp BP Pulse Ox 98.4 F 68 18 126/63 94 L 09/03/18 08:29 09/03/18 08:29 09/03/18 08:29 09/03/18 08:29 09/03/18 08:29 - Medications Medications: Current Medications Albuterol/Ipratropium (Duoneb 3 Mg/0.5 Mg (3 Ml) Ud) 3 ml INH RQ6 [facility] Last Admin: 09/03/18 01:13 Dose: Not Given Artificial Tears (Artificial Tears) 0 ml OU Q12 [facility] Last Admin: 09/02/18 21:24 Dose: 1 drop Carbidopa/Levodopa (Sinemet) 1 tab PO QID [facility] Last Admin: 09/02/18 21:24 Dose: 1 tab Pramipexole Dihydrochloride (Mirapex) 0.5 mg PO DAILY [facility] Last Admin: 09/02/18 09:29 Dose: 0.5 mg Rivastigmine (Exelon 4.6 Mg/24 Hr Patch) 1 patch TD DAILY [facility] Last Admin: 09/02/18 09:38 Dose: 1 patch - Labs Labs: 08/31/18 06:25 08/31/18 06:25
[2018-09-03] MEDS: Aritificial Tears (15ml) OU SCH (10:29)
--- NOTE | 2018-09-03 15:39 | CP.PCM.DIS ---
Provider - Provider Date of Admission: 08/28/18 15:20 Attending physician: Vince Huerta MD Time Spent in preparation of Discharge (in minutes): 45 Hospital Course - Lab Results Lab Results: Micro Results 08/28/18 12:05 Blood Blood Culture - Final NO GROWTH AFTER 5 DAYS 08/28/18 12:05 Blood Gram Stain - Final TEST NOT PERFORMED 08/28/18 12:40 Blood Blood Culture - Final NO GROWTH AFTER 5 DAYS 08/28/18 12:40 Blood Gram Stain - Final TEST NOT PERFORMED Most Recent Lab Values WBC 5.3 K/uL (4.8-10.8) 08/31/18 06:25 RBC 4.21 Mil/uL (3.80-5.20) 08/31/18 06:25 Hgb 11.5 g/dL (11.0-16.0) 08/31/18 06:25 Hct 34.7 % (34.0-47.0) 08/31/18 06:25 MCV 82.3 fL (81.0-99.0) D 08/31/18 06:25 MCH 27.3 pg (27.0-31.0) 08/31/18 06:25 MCHC 33.2 g/dL (33.0-37.0) 08/31/18 06:25 RDW 14.0 % (11.5-14.5) 08/31/18 06:25 Plt Count 256 K/uL (130-400) 08/31/18 06:25 MPV 9.4 fL (7.2-11.7) 08/31/18 06:25 Neut % (Auto) 61.8 % (50.0-75.0) 08/31/18 06:25 Lymph % (Auto) 28.3 % (20.0-40.0) 08/31/18 06:25 Mcmullen % (Auto) 7.0 % (0.0-10.0) 08/31/18 06:25 Eos % (Auto) 2.6 % (0.0-4.0) 08/31/18 06:25 Baso % (Auto) 0.3 % (0.0-2.0) 08/31/18 06:25 Neut # (Auto) 3.3 K/uL (1.8-7.0) 08/31/18 06:25 Lymph # (Auto) 1.5 K/uL (1.0-4.3) 08/31/18 06:25 Mcmullen # (Auto) 0.4 K/uL (0.0-0.8) 08/31/18 06:25 Eos # (Auto) 0.1 K/uL (0.0-0.7) 08/31/18 06:25 Baso # (Auto) 0.0 K/uL (0.0-0.2) 08/31/18 06:25 pO2 24 mm/Hg (30-55) L 08/28/18 12:56 VBG pH 7.33 (7.32-7.43) 08/28/18 12:56 VBG pCO2 43 mmHg (40-60) 08/28/18 12:56 VBG HCO3 20.8 mmol/L 08/28/18 12:56 VBG Total CO2 24.0 mmol/L (22-28) 08/28/18 12:56 VBG O2 Sat (Calc) 36.9 % (40-65) L 08/28/18 12:56 VBG Base Excess -3.2 mmol/L (0.0-2.0) L 08/28/18 12:56 VBG Potassium 3.3 mmol/L (3.6-5.2) L 08/28/18 12:56 Sodium 147.0 mmol/l (132-148) 08/28/18 12:56 Chloride 115.0 mmol/L (98-107) H 08/28/18 12:56 Glucose 88 mg/dl (65-105) 08/28/18 12:56 Lactate 0.9 mmol/L (0.7-2.1) 08/28/18 12:56 Sodium 141 mmol/L (132-148) 08/31/18 06:25 Potassium 3.9 mmol/L (3.6-5.2) 08/31/18 06:25 Chloride 109 mmol/L (98-107) H 08/31/18 06:25 Carbon Dioxide 23 mmol/L (22-30) 08/31/18 06:25 Anion Gap 13 (10-20) 08/31/18 06:25 BUN 17 mg/dL (7-17) 08/31/18 06:25 Creatinine 0.5 mg/dL (0.7-1.2) L 08/31/18 06:25 Est GFR ( Amer) > 60 08/31/18 06:25 Est GFR (Non-Af Amer) > 60 08/31/18 06:25 POC Glucose (mg/dL) 90 mg/dL (65-110) 08/30/18 11:28 Random Glucose 99 mg/dL (65-105) 08/31/18 06:25 Calcium 9.4 mg/dl (8.6-10.4) 08/31/18 06:25 Phosphorus 3.6 mg/dL (2.5-4.5) 08/31/18 06:25 Magnesium 2.0 mg/dL (1.6-2.3) 08/31/18 06:25 Total Bilirubin 0.4 mg/dL (0.2-1.3) 08/31/18 06:25 AST 23 U/L (14-36) 08/31/18 06:25 ALT 9 U/L (9-52) D 08/31/18 06:25 Alkaline Phosphatase 119 U/L (38-126) 08/31/18 06:25 Troponin I < 0.0120 ng/mL (0.00-0.120) 08/28/18 12:54 NT-Pro-B Natriuret Pep 437 pg/mL (0-900) 08/28/18 12:54 Total Protein 7.5 g/dL (6.3-8.3) 08/31/18 06:25 Albumin 4.2 g/dL (3.5-5.0) 08/31/18 06:25 Globulin 3.3 gm/dL (2.2-3.9) 08/31/18 06:25 Albumin/Globulin Ratio 1.3 (1.0-2.1) 08/31/18 06:25 Venous Blood Potassium 3.3 mmol/L (3.6-5.2) L 08/28/18 12:56 Influenza Typ A,B (EIA) Negative for flu a/b (NEGATIVE) 08/28/18 13:05 - Hospital Course Hospital Course: chief complaint: Shortness of breath HPI: 88-year-old female with a history of advanced Parkinson disease, and associated dementia. Patient also significantly disabled, using wheelchair for mostly mobility. Patient came to my office recently, physical therapy was started. Recently while she was doing physical therapy patient was having difficult time in getting up. I advised her to eat pured diet thickener, but in spite of that the patient was having difficult time in swallowing. She started losing significant weight. Recently over the course of 2 days she was having increasing shortness of breath, cough, sore throat, and associate with the chest congestion and also was having low-grade fever chills and feverish while she was brought into the emergency room. Patient family was also concerned about her losing significant weight in spite of the feeding with assistance. Patient also having increasing fatigue, mild tachypnea also noted. She was also having weakness tiredness fatigue. She denied have diarrhea. But mostly weak and extreme tiredness and fatigue present Past medical history: Advanced Parkinson disease Mild dementia. Musculoskeletal disability. Mostly wheelchair-bound. Hypertension. Had a history of diabetes in the past. Poor intake recently Surgical history no surgery. Patient has no known drug allergy. She did not have any alcohol or smoking or drug abuse in the past. Patient's family is mostly taking care of her. Patient has a home health aide. Review of system: Patient is now complaining of minimal cough, some shortness of breath noted. She denied any headache. She is awake and responding. Moving all full extremity but having increasing weakness and is slow in mobility noted No leg swelling. On examination: Vital signs otherwise stable. Mild tachycardia, tachypnea, and a low-grade fever noted. Chest bilateral minimal expiratory wheezing noted, regular heart sound Nontender abdomen. Patient has no pedal edema Chest x-ray reveals left lower lung atelectatic changes. CBC CMP nonspecific. No EKG changes noted. Assessment and recommendation: 88-year-old female with history of advanced Parkinson disease. Associated dementia. Hypertension and a history of high blood pressure and diabetes. The patient is now admitted with a possible aspiration pneumonia aspiration pneumonitis. Overall patient is worsening in her musculoskeletal endurance and capacity. Patient is having worsening Parkinson disease. Patient is at high risk for aspiration pneumonia. We will get a CT of the chest. Swallow evaluation. Aspiration precautions. DVT GI prophylaxis. We will continue to closely monitor. Neuro watch. Neurological, if needed patient might need alternative feeding. We will follow the patient Course in the hospital: Patient was initially admitted to the hospital with a possible aspiration pneumonia. Patient was started on in antibiotic, bronchodilators started. Repeat chest x-ray showing no worsening infiltrate. Patient was also needing physical therapy. Swallow evaluation was done. Patient is tolerating the pured diet with nectar thickening. I spoke to the family in details about the aspiration precautions. Patient's overall condition is stable. But her medical condition can get worse. She is at high risk for worsening dementia, and a dysphagia. I spoke to the family regarding the feeding tube, but family does not want to have any further aggressive treatment. Patient is now pretty stable. Will discharge the patient today. Will arrange for home physical therapy. Home PT. Visiting nurse. And as well as increasing the home health aid. Final diagnosis: Decompensated Parkinson disease. Worsening dysphagia. Aspiration pneumonitis. Parkinson disease and dementia. Osteoarthritis. Recurrent fall. Medications reviewed. Spoke to the family. Will follow the patient in my office in one week Discharge Plan - Follow Up Plan Condition: GOOD Disposition: HOME/ ROUTINE
== END 2018-09-03 16:37 | disposition home or self-care (01) | DRG 179 ==
LOC: C.ER 12:00 → C.9E 15:20 → C.6T 17:22
PROVIDERS: ADMIT Internal Medicine; ATTEND Internal Medicine
DX: J69.0 Pneumonitis due to inhalation of food and vomit (principal); E11.9 Type 2 diabetes mellitus without complications; F02.80 Dementia in other diseases classified elsewhere, unspecified severity, without behavioral disturbance, psychotic disturbance, mood disturbance, and anxiety; I10 Essential (primary) hypertension; G20 Parkinson's disease; M62.50 Muscle wasting and atrophy, not elsewhere classified, unspecified site; M81.0 Age-related osteoporosis without current pathological fracture; M19.90 Unspecified osteoarthritis, unspecified site; R29.6 Repeated falls